=== PATIENT | female | born 1940 | race Caucasian/White ===

== ENCOUNTER 2017-04-10 15:00 | Emergency (ER) | payer MEDICARE, BC ==
[~2017-04-10] VITALS: Ht 162.6 cm; Wt 49.9 kg
--- NOTE | 2017-04-10 15:44 | NUR ---
PT DOES NOT REMEMBER HER HOME MEDICINE NAMES. PT'S FRIEND IS GOING TO BRING MEDICATION LIST LATER. DR CHAPARRO NOTIFIED. CODE SEPSIS WAS CALLED BY DR CHAPARRO. SEPSIS PROTOCOL STARTED.
[2017-04-10] MEDS ORDERED: ACETAMINOPHEN 325 MG TABLET PO ONE (15:45)
[2017-04-10] MEDS ORDERED: IV NORMAL SALINE 1000 ML BAG IV ONE (16:00)
[2017-04-10 16:18] LABS: BASOPHILS # (AUTO) 0.2 K/uL (0.0-8.0); BASOPHILS % (AUTO) 1.7 % (0.0-2.0); EOSINOPHILS # (AUTO) 0.4 K/uL (0.0-0.7); EOSINOPHILS % (AUTO) 3.7 % (0.0-7.0); HEMATOCRIT 35.3 % (37-47); HEMOGLOBIN 11.5 G/DL (12.0-16.0); LYMPHOCYTES # (AUTO) 0.7 K/UL (0.8-4.8); LYMPHOCYTES % (AUTO) 5.9 % (20.5-51.5); MEAN CORPUSCULAR HGB CONC 33 g/dL (32.0-37.0); MEAN CORPUSCULAR VOLUME 73.6 FL (81.0-99.0); MONOCYTES # (AUTO) 0.9 K/UL (0.1-1.30); MONOCYTES % (AUTO) 7.4 % (0.0-11.0); NEUTROPHILS # (AUTO) 9.4 K/UL (1.8-8.9); NEUTROPHILS % (AUTO) 81.3 % (38.5-71.5); PLATELET COUNT (AUTO) 212 K/UL (150-450); RED BLOOD CELL COUNT(AUTO) 4.79 MIL/UL (4.2-5.4); WHITE BLOOD COUNT (AUTO) 11.6 K/UL (4.0-11.2)
[2017-04-10 16:19] LABS: *BILIRUBIN,URIN NEGATIVE (NEGATIVE); *BLOOD, URINE 2+ (NEGATIVE); *COLOR,URINE YELLOW (YELLOW); *KETONES,URINE NEGATIVE (NEGATIVE); *PROTEIN,URINE NEGATIVE (NEGATIVE); *UROBILINOGEN,URINE 0.2 E.U./dl (NORMAL); LEUKOCYTE ESTERASE ,URINE NEGATIVE (NEGATIVE); NITRITE, URINE NEGATIVE (NEGATIVE); UGLUCOSE NEGATIVE (NEGATIVE)
[2017-04-10] MEDS ORDERED: ACETAMINOPHEN 325 MG TABLET ONE (16:20)
[2017-04-10 16:23] LABS: CREATININE 0.7 mg/dL (0.6-1.3); POTASSIUM 3.4 mmol/L (3.5-5.1)
[2017-04-10 16:29] LABS: BILIRUBIN,DIRECT 0.1 mg/dL (0.0-0.2); BILIRUBIN,TOTAL 0.6 mg/dL (0.2-1.0); TOTAL PROTEIN, SERUM 7.1 g/dL (6.4-8.2)
[2017-04-10 16:42] LABS: *CLARITY,URINE SLIGHTLY HAZY (CLEAR)
[2017-04-10 16:54] LABS: BACTERIA,URINE FEW /HPF (NONE SEEN); RBC,URINE 20-50 /HPF (0-3); SQUAMOUS EPITHELIAL CELL,UR FEW /HPF (NONE SEEN); WBC,URINE 0-3 /HPF (0-3)
[2017-04-10 17:03] LABS: BAND % (MANUAL) 8 % (0-10); EOSINOPHILS % (MANUAL) 3 % (0-8); LYMPHOCYTES % (MANUAL) 6 % (20-40)
[2017-04-10 17:05] LABS: MONOCYTES % (MANUAL) 7 % (2-10); NEUTROPHILS % (MANUAL) 76 % (42-75)
[2017-04-10] MEDS ORDERED: LEVOFLOXACIN 500 MG TABLET PO ONE (17:15)
[2017-04-10] MEDS ORDERED: LEVOFLOXACIN 500 MG TABLET ONE (17:20)
--- NOTE | 2017-04-10 17:30 | NUR ---
Patient discharged to home in stable conditon. Written and verbal after care instructions given. Patient verbalizes understanding of instructions.PT SAYS FEELS BETTER, PT D/C HOME WITH CAREGIVER AND FRIEND. PT WALKS IN STEADY GAIT.
== END 2017-04-10 17:30 | disposition home or self-care (01) ==
LOC: ER 15:03
DX: N39.0 Urinary tract infection, site not specified (principal); I10 Essential (primary) hypertension; R50.9 Fever, unspecified; R42 Dizziness and giddiness
CPT/HCPCS: 36415; 70450; 71010; 83605; 83690; 85025; 87040; 87086; 93005; A4663; J7030

== ENCOUNTER 2018-11-30 12:02 | Emergency (ER) | payer MEDICARE, BC ==
[~2018-11-30] VITALS: Ht 162.6 cm; Wt 47.6 kg
[2018-11-30] MEDS ORDERED: ATENOLOL (12:10)
[2018-11-30] MEDS ORDERED: FLOMAX (12:10)
--- NOTE | 2018-11-30 12:45 | NUR ---
Pt is resting in [place], no s/s of distress noted at this time.
--- NOTE | 2018-11-30 13:17 | NUR ---
Patient discharged to home in stable conditon with friend. Written and verbal after care instructions given. Patient verbalizes understanding of instructions.
== END 2018-11-30 13:19 | disposition home or self-care (01) ==
LOC: ER 12:02
DX: R09.81 Nasal congestion (principal); I10 Essential (primary) hypertension; Z88.0 Allergy status to penicillin; Z79.899 Other long term (current) drug therapy
CPT/HCPCS: A4663

== ENCOUNTER 2021-09-18 12:42 | Inpatient (IN) | payer MEDICARE, BC ==
[~2021-09-18] VITALS: Ht 152.4 cm; Wt 47.6 kg
[~2021-09-18 12:42] MED LIST: ATENOLOL; FLOMAX
--- NOTE | 2021-09-18 12:50 | NUR ---
No information about current home medications available, pt unable to provide the info at this time.
[2021-09-18 13:13] LABS: HEMATOCRIT 38.1 % (31.2-41.9); MEAN CORPUSCULAR HEMOGLOBIN 24.4 uug (24.7-32.8); MEAN CORPUSCULAR VOLUME 73.5 fL (75.5-95.3); PLATELET COUNT (AUTO) 260 K/uL (179-408)
[2021-09-18 13:20] LABS: CARBON DIOXIDE 28 mmol/L (21-32); CHLORIDE 91 mmol/L (98-107); CREATININE 0.6 mg/dL (0.6-1.3); GLUCOSE 135 mg/dL (74-106); UREA NITROGEN, BLOOD 19 mg/dL (7-18)
[2021-09-18 13:23] LABS: ETHANOL < 3 MG/DL (0-0)
[2021-09-18 13:34] LABS: THYROID STIMULATING HORMONE 0.846 mIU/mL (0.358-3.740)
[2021-09-18 13:35] LABS: ALANINE AMINOTRANSFERASE 24 U/L (14-59); ALKALINE PHOSPHATASE 102 U/L (50-136); ASPARTATE AMINOTRANSFERASE 26 U/L (15-37); BILIRUBIN,DIRECT 0.1 mg/dL (0.0-0.2); BILIRUBIN,TOTAL 0.4 mg/dL (0.2-1.0); TOTAL PROTEIN, SERUM 7.8 g/dL (6.4-8.2)
[2021-09-18 13:36] LABS: ACETAMINOPHEN < 2.0 ug/mL (10-30)
[2021-09-18 13:42] LABS: *BILIRUBIN,URIN NEGATIVE (NEGATIVE); *COLOR,URINE YELLOW (YELLOW); *KETONES,URINE NEGATIVE (NEGATIVE); *UROBILINOGEN,URINE 0.2 E.U./dl (NORMAL); LEUKOCYTE ESTERASE ,URINE NEGATIVE (NEGATIVE); NITRITE, URINE NEGATIVE (NEGATIVE); PH,URINE 7.5 (5.0-8.0); UGLUCOSE NEGATIVE (NEGATIVE)
[2021-09-18 13:49] LABS: LYMPHOCYTES % (MANUAL) 16 % (20-40); MONOCYTES % (MANUAL) 6 % (2-10); NEUTROPHILS % (MANUAL) 78 % (42-75)
[2021-09-18 13:50] LABS: *BLOOD, URINE TRACE (NEGATIVE)
[2021-09-18 13:53] LABS: *AMPHETAMINE, URINE NEGATIVE (NEGATIVE); *CANNABINOID, URINE NEGATIVE (NEGATIVE); *COCCAINE, URINE NEGATIVE (NEGATIVE); *OPIATE, URINE NEGATIVE (NEGATIVE); *PHENCYCLIDINE SCREEN,URINE NEGATIVE (NEGATIVE)
[2021-09-18] MEDS ORDERED: MONT10TA22 PO (13:56)
[2021-09-18] MEDS ORDERED: AMIT50TA3 PO (13:56)
[2021-09-18] MEDS ORDERED: ATEN50TA PO (13:56)
[2021-09-18] MEDS ORDERED: AMLO10TA59 PO (13:56)
[2021-09-18] MEDS ORDERED: TELM80TA2 PO (13:56)
[2021-09-18] MEDS ORDERED: FLUT1BLS IH (13:56)
[2021-09-18] MEDS ORDERED: [UNRECOGNIZED DRUG - CODE] SL (13:56)
[2021-09-18] MEDS ORDERED: DONE5TAB34 PO (13:56)
--- NOTE | 2021-09-18 13:56 | NUR ---
MED RECON IS BASED ON THE LIST THAT CHEMICAL PATHOLOGIST PROVIDED.
[2021-09-18 13:59] LABS: *CLARITY,URINE HAZY (CLEAR); BACTERIA,URINE FEW /HPF (NONE SEEN); SQUAMOUS EPITHELIAL CELL,UR FEW /HPF (NONE SEEN); URINE AMORPHOUS PHOSPHATES MODERATE /HPF
[2021-09-18] MEDS ORDERED: IV NORMAL SALINE 1000 ML BAG IV ONE (14:30)
[2021-09-18] MEDS ORDERED: CEFTRIAXONE 1 G in IV DEXTROSE 5% 50 ML IV ONE (14:30)
[2021-09-18] MEDS ORDERED: CEFTRIAXONE 1 G VIAL ONE (14:48)
--- NOTE | 2021-09-18 14:55 | NUR ---
DR. HICKMAN ADMITTED THE PT. NO BED AVAILABLE AT THIS TIME.
[2021-09-18] MEDS ORDERED: ONDANSETRON 4 MG/2 ML VIAL IV PRN (15:00)
[2021-09-18] MEDS ORDERED: Z GUARD REMEDY PASTE 57 GM TUBE TOP PRN (15:00)
[2021-09-18] MEDS ORDERED: MAGNESIUM HYDROXIDE 30 ML LIQUID UDC PO PRN (15:00)
[2021-09-18] MEDS ORDERED: IV NS 1000 ML 1,000 ML IV PRN (15:00)
--- NOTE | 2021-09-18 15:17 | NUR ---
ER TALKING TO PT'S SON
--- NOTE | 2021-09-18 17:44 | NUR ---
pt ambulated to bathroom x 2 with assisstance.
--- NOTE | 2021-09-18 21:09 | NUR ---
Transported patient to 3rd floor Tele via [employer].
--- NOTE | 2021-09-18 21:20 | NUR ---
Received patient from ER via [employer]. Patient ia A/O x2. Placed on telemetry, sinus rhythm on the monitor, Patient is on room air, no SOB or signs of distress. Patient is able to stand on her own power, no dizziness on standing.
[2021-09-18 21:38] VITALS: BP 146/60
[2021-09-18] MEDS ORDERED: POTASSIUM CHLORIDE 20 MEQ TAB.PRT.SR PO ONE (22:00)
[2021-09-18] MEDS: MONTELUKAST SODIUM 10 MG TABLET PO SCH (22:04)
[2021-09-18] MEDS: DONEPEZIL 5 MG TABLET PO SCH (22:04)
[2021-09-19] VITALS (7 sets, daily range): BP systolic 112–157; BP diastolic 43–76
--- NOTE | 2021-09-19 06:16 | NUR ---
patient remains in stable condition, A/O x2 requiring reorientation every so often as she gets confused. Patient remains SR on the monitor, BP stable, remains on room air, no SOB or signs of distress. No signs of dizziness during the night, is able to get up from bed on her own power to go to the bathroom, no orthostatic hypotension.
--- NOTE | 2021-09-19 07:25 | NUR ---
Received report from driver messenger nurse, patient in bed awake, no distress noted at this time, bed in low position, side rails up x2, bed alarm on.
[2021-09-19 07:31] LABS: HEMATOCRIT 35.3 % (31.2-41.9); MEAN CORPUSCULAR HEMOGLOBIN 24.1 uug (24.7-32.8); MEAN CORPUSCULAR VOLUME 73.3 fL (75.5-95.3); PLATELET COUNT (AUTO) 249 K/uL (179-408)
[2021-09-19 07:35] LABS: CARBON DIOXIDE 29 mmol/L (21-32); CHLORIDE 96 mmol/L (98-107); CREATININE 0.4 mg/dL (0.6-1.3); GLUCOSE 101 mg/dL (74-106); MAGNESIUM 1.7 mg/dL (1.8-2.4); PHOSPHOROUS 2.5 mg/dL (2.5-4.9); POTASSIUM 2.8 mmol/L (3.5-5.1); UREA NITROGEN, BLOOD 10 mg/dL (7-18)
[2021-09-19] MEDS: FLUTICASONE/VILANTEROL 1 EACH BLST.W.DEV IH SCH (09:16)
[2021-09-19] MEDS: POTASSIUM CHLORIDE 10 MEQ TAB.PRT.SR PO SCH ×2 (09:16→12:49)
[2021-09-19] MEDS: MAGNESIUM SULFATE/D5W 100 ML IV SCH ×2 (09:31→10:51)
--- NOTE | 2021-09-19 10:00 | NUR ---
Patient continues to report that she is having some pain behind left ear. Family reports that it is chronic in nature. Caregiver also requested that a locks tender is consulted as she frequently wants to take laxatives in order to evacuate and not gain weight. Nutritional intake at home reported to be low.
[2021-09-19] MEDS: ACETAMINOPHEN 325 MG TABLET PO PRN (10:58)
[2021-09-19] MEDS: CEphaleXIN 250 MG CAPSULE PO SCH ×2 (14:35→21:00)
--- NOTE | 2021-09-19 16:19 | NUR ---
Clinical Social Work Note Dietitian requested a consult for help with resources for outpatient corporate bond trader services. Patient is alert and oriented x4. Patient presents with a euthymic mood as she was smiling when speaking with social worker delinquency prevention. Patients son was in the room with patient and participated in the assessment . Son and patient stated that they needed outpatient dietitian services. Patients son stated that patients PCP recommended a dietitian for the patient but services stopped due to telemedicine not working well for patient. Patient stated that the dietitian was assisting her with gaining weight due to her childhood where her mother made her believe she needed to be on a diet every time she gained 2 or 3 pounds. Patient and son reported that the previous dietitian did great work and if she is returned to in person treatment she would like to go return. Patient and son did not recall the name of the agency for the dietitian. Son provided social worker delinquency prevention with patient primary care doctors information park worker supervisor provided patient and son some resources for outpatient services ([facility] [address] [place] [address] , [facility] [address] [place] [address]. [address] [place] [address] ). Plan: park worker supervisor will follow up with patients primary care physician to attempt to link her with previous dietitian.
[2021-09-19 17:23] LABS: EOSINOPHILS % (MANUAL) 8 % (0-8); LYMPHOCYTES % (MANUAL) 21 % (20-40); MONOCYTES % (MANUAL) 5 % (2-10); NEUTROPHILS % (MANUAL) 66 % (42-75)
--- NOTE | 2021-09-19 17:30 | NUR ---
Received patient in bed, semi fowlers. AAO x4 with some forgetfulness. Son aCrlos at bedside. No SOB or c/o pain. Has a PIV to left FA #20, patent and intact. Currently on NS at 75ml/hr. Awaiting KCL with NS from pharmacy. On Tele, on Sinus Rhythm with occasional PAC with HR 64. Call light within reach. Addendum: 09/20/21 at 2221 by MARK BALDERRAMA RN Note is meant for 1930 not 173
[2021-09-19] MEDS: DONEPEZIL 5 MG TABLET PO SCH (20:32)
[2021-09-19] MEDS: MONTELUKAST SODIUM 10 MG TABLET PO SCH (20:32)
[2021-09-19] MEDS: POTASSIUM CHLORIDE 20 MEQ in IV NS 1000 ML 1,000 ML IV PRN (20:34)
[2021-09-19] MEDS: ZOLPIDEM 5 MG TABLET PO PRN (20:57)
[2021-09-20] VITALS: BP 130/60
[2021-09-20 04:00] VITALS: BP 135/62
[2021-09-20] MEDS: CEphaleXIN 250 MG CAPSULE PO SCH ×3 (05:18→21:18)
--- NOTE | 2021-09-20 06:01 | NUR ---
AAOx2-3 with periods of forgetfulness and confusion. Complain of left ear pain but tolerable per pt. No SOB noted. IV site on left FA remains patent and intact. IVF infusing. No adverse reaction noted from PO antibiotic. NSR of tele with HR of 63/min. Needs assessed and attended to. Safety measure maintained and call light within reached.
[2021-09-20 06:29] LABS: HEMATOCRIT 37.9 % (31.2-41.9); MEAN CORPUSCULAR HEMOGLOBIN 23.8 uug (24.7-32.8); PLATELET COUNT (AUTO) 247 K/uL (179-408)
[2021-09-20 06:41] LABS: CARBON DIOXIDE 28 mmol/L (21-32); CHLORIDE 91 mmol/L (98-107); CREATININE 0.5 mg/dL (0.6-1.3); GLUCOSE 113 mg/dL (74-106); PHOSPHOROUS 2.5 mg/dL (2.5-4.9); POTASSIUM 3.1 mmol/L (3.5-5.1); UREA NITROGEN, BLOOD 9 mg/dL (7-18)
[2021-09-20] MEDS ORDERED: POTASSIUM CHLORIDE 20 MEQ TAB.PRT.SR PO ONE (08:00)
--- NOTE | 2021-09-20 08:00 | NUR ---
awake alert, oriented to self, states doesn't remember where she is and how she got here, reoriented, very pleasant, denies of pain, tele SR 60's, explained plan of care but forgets [id number]- needs reinforcement. safety measures in place, call light within reach
[2021-09-20] MEDS: FLUTICASONE/VILANTEROL 1 EACH BLST.W.DEV IH SCH (08:40)
--- NOTE | 2021-09-20 10:30 | NUR ---
caregiver here at bedside, needs attended, pt very happy to see her
[2021-09-20 11:30] VITALS: BP 162/85
--- NOTE | 2021-09-20 12:00 | NUR ---
son here at bedside and spoke to Meenu Gillis NP
[2021-09-20] MEDS ORDERED: AMLODIPINE 10 MG TABLET PO ONE (12:30)
[2021-09-20] MEDS: POTASSIUM CHLORIDE 20 MEQ in IV NS 1000 ML 1,000 ML IV PRN (14:15)
[2021-09-20 16:07] VITALS: BP 140/67
--- NOTE | 2021-09-20 18:56 | NUR ---
resting in bed, no distress noted, all needs attended and met, call light within reach
[2021-09-20] MEDS: ACETAMINOPHEN 325 MG TABLET PO PRN (18:57)
--- NOTE | 2021-09-20 19:30 | NUR ---
Received patient in bed with son at bedside. AAO to person and situation with forgetfulness. She is repetitive and pleasant. No SOB or c/o pain. Has a PIV to left FA #20, patent and intact. Currently running KCL with NS at 60ml/ hour. Needs assessed and safety measures initiated. Call light within reach.
[2021-09-20 20:00] VITALS: BP 142/71
[2021-09-20] MEDS: MONTELUKAST SODIUM 10 MG TABLET PO SCH (21:18)
[2021-09-20] MEDS: DONEPEZIL 5 MG TABLET PO SCH (21:18)
[2021-09-20] MEDS: ZOLPIDEM 5 MG TABLET PO PRN (21:19)
--- NOTE | 2021-09-20 23:30 | NUR ---
Patient is confused and agitated. Patient getting out of bed without assistance 3 times, staff alerted by alarm. Patient is high risk for fall. Stating she is not in the hospital anymore and wants to drive home from wherever she is. Attempts to reorient her are unsuccessful. Called her son and he was able to call unit back and reorient patient. She is calm now and resting, Bed in low position, semi fowlers, and 2 bed side rails up. Bed alarm on and call light within reach.
[2021-09-21] MEDS: ACETAMINOPHEN 325 MG TABLET PO PRN ×2 (01:19→11:14)
[2021-09-21 04:00] VITALS: BP 145/78
[2021-09-21] MEDS: CEphaleXIN 250 MG CAPSULE PO SCH (05:48)
--- NOTE | 2021-09-21 06:16 | NUR ---
Patient slept intermittently. Able to sleep post call with son. No further episodes of agitation noted. AAO to person with forgetfulness and repetitiveness. No SOB. C/O pain to left ear, 4/10, relieved with Tylenol 650mg PO. IV to left FA #20, patent and intact, running NS with 20MEQ KCL at 60ml/ hour. Needs assessed and safety measures continued. Call light within reach.
[2021-09-21 06:48] LABS: HEMATOCRIT 38.2 % (31.2-41.9); MEAN CORPUSCULAR HEMOGLOBIN 23.9 uug (24.7-32.8); MEAN CORPUSCULAR VOLUME 73.7 fL (75.5-95.3); PLATELET COUNT (AUTO) 260 K/uL (179-408)
[2021-09-21 07:05] LABS: CARBON DIOXIDE 27 mmol/L (21-32); CHLORIDE 93 mmol/L (98-107); CREATININE 0.5 mg/dL (0.6-1.3); GLUCOSE 96 mg/dL (74-106); MAGNESIUM 1.9 mg/dL (1.8-2.4); PHOSPHOROUS 2.8 mg/dL (2.5-4.9); POTASSIUM 3.4 mmol/L (3.5-5.1); UREA NITROGEN, BLOOD 9 mg/dL (7-18)
[2021-09-21] MEDS: POTASSIUM CHLORIDE 20 MEQ in IV NS 1000 ML 1,000 ML IV PRN (09:16)
[2021-09-21] MEDS: FLUTICASONE/VILANTEROL 1 EACH BLST.W.DEV IH SCH (09:16)
[2021-09-21] MEDS ORDERED: CEPH250C PO (10:41)
[2021-09-21] MEDS ORDERED: POTASSIUM CHLORIDE 20 MEQ TAB.PRT.SR PO ONE (11:15)
[2021-09-21 11:36] VITALS: BP 151/74
--- NOTE | 2021-09-21 12:46 | NUR ---
new discharge orders received. discharge instructions given to patient and son Carlos in room, patient and son stated understanding. reminded patient to follow up with primary helathcare provider within 1 week. Please take medications as ordered. follow up with primary healthcare provider for vaccinations if needed. please return to your nearest emergency room or call 911 if symptoms worsen. inventory completed patient and son stated everything was present and inventory list was signed. IV site removed, minimal bleeding noted at this time. v/s wnl, afebrile.
[2021-09-21] MEDS ORDERED: POTASSIUM CHLORIDE 10 MEQ TAB.PRT.SR PO ONE (13:00)
== END 2021-09-21 13:00 | disposition home or self-care (01) | DRG 640 ==
LOC: ER 12:42 → TELE3 20:56 → MEDSURG3 09-20 11:53
PROVIDERS: ADMIT Internal Medicine; ATTEND Nurse Practitioner Acute Care
DX: E86.0 Dehydration (principal); N17.0 Acute kidney failure with tubular necrosis; G93.41 Metabolic encephalopathy; N39.0 Urinary tract infection, site not specified; R55 Syncope and collapse; E87.1 Hypo-osmolality and hyponatremia; E87.6 Hypokalemia; E83.42 Hypomagnesemia; E86.1 Hypovolemia; F03.90 Unspecified dementia, unspecified severity, without behavioral disturbance, psychotic disturbance, mood disturbance, and anxiety; I10 Essential (primary) hypertension; Z20.822 Contact with and (suspected) exposure to COVID-19; R53.1 Weakness
CPT/HCPCS: 36415; 70030-TC; 70450; 71045; 83605; 83735; 83930; 83935; 84100; 84295; 84443; 85025; 87040; 87086; 93005; 93307; 97161; A4663; C1758; G0378; G0480; J0696; J3475; J3480; J7030; J7040